=== PATIENT | male | born 1955 ===

== ENCOUNTER → 2017-04-25 | Outpatient (CLI) | payer OTHER | END | disposition home or self-care (01) | LOC: C.LABSPEC 16:36 | PROVIDERS: ATTEND Orthopaedic Surgery | DX: Z11.4 Encounter for screening for human immunodeficiency virus [HIV] (principal); Z86.14 Personal history of Methicillin resistant Staphylococcus aureus infection ==

== ENCOUNTER → 2017-06-25 | Outpatient (CLI) | payer OTHER | END | disposition home or self-care (01) | LOC: C.PATHSPEC 17:53 | PROVIDERS: ATTEND Orthopaedic Surgery | DX: L98.9 Disorder of the skin and subcutaneous tissue, unspecified (principal); M86.132 Other acute osteomyelitis, left radius and ulna ==

== ENCOUNTER → 2017-06-25 | Outpatient (CLI) | payer OTHER | END | disposition home or self-care (01) | LOC: C.LABSPEC 17:17 | PROVIDERS: ATTEND Orthopaedic Surgery | DX: M70.32 Other bursitis of elbow, left elbow (principal) ==

== ENCOUNTER → 2017-10-23 | Outpatient (CLI) | payer OTHER | END | disposition home or self-care (01) | LOC: C.LABSPEC 17:15 | PROVIDERS: ATTEND Urology | DX: R33.9 Retention of urine, unspecified (principal); N31.9 Neuromuscular dysfunction of bladder, unspecified; N39.0 Urinary tract infection, site not specified; N39.46 Mixed incontinence ==